=== PATIENT | female | born 1985 | race African-American/Black ===

== ENCOUNTER 2021-05-24 12:37 | Emergency (ER) | payer OTHER ==
[~2021-05-24] VITALS: Ht 175.3 cm; Wt 86.2 kg
[2021-05-24 12:43] VITALS: BP 140/91
--- NOTE | 2021-05-24 12:51 | NUR ---
PT AMBULATED TO BED 9
--- NOTE | 2021-05-24 13:01 | NUR ---
36Y FEMALE BIB SELF FROM HOME DUE TO VAGINAL BLEEDING X1 MONTH. PER PATIENT SHE IS CURRENTLY SATURAING ABOUT 3 PADS A DAY AND IS PASSING CLOTS. PT STATED BLEEDING IS HEAVY AND NON-STOP FOR THE PAST MONTH. PER PATIENT SHE LAST HAD UNPROCTECTED SEX X2 MONTHS AGO. PT DENIES ANY PAIN. PT CURRENTY A&OX4. PMH: ETOPIC 2008 NKA
--- NOTE | 2021-05-24 13:01 | NUR ---
DR. KENT BEDSIDE EVALUATING PT
--- NOTE | 2021-05-24 13:12 | NUR ---
BLOOD COLLECTED AND WALKED TO LAB
--- NOTE | 2021-05-24 13:12 | NUR ---
RECREATION WORKER AT PATIENT BEDSIDE
[2021-05-24 13:28] LABS: BASOPHILS % (AUTO) 0.8 % (0.0-2.0); EOSINOPHILS # (AUTO) 0.1 K/uL (0-0.4); EOSINOPHILS % (AUTO) 3.3 % (0.0-4.0); HEMATOCRIT 33.1 % (36-48); HEMOGLOBIN 11.3 g/dL (12.0-16.0); LYMPHOCYTES # (AUTO) 1.2 K/uL (2.5-16.5); LYMPHOCYTES % (AUTO) 30.1 % (20.5-51.1); MEAN CORPUSCULAR HEMOGLOBIN 30 pg (27-31); MEAN CORPUSCULAR HGB CONC 34 g/dL (33-37); MEAN CORPUSCULAR VOLUME 86.4 fL (80-94); MONOCYTES # (AUTO) 0.3 K/uL (0.8-1.0); MONOCYTES % (AUTO) 8.4 % (1.7-9.3); NEUTROPHILS # (AUTO) 2.3 K/uL (1.8-7.7); NEUTROPHILS % (AUTO) 57.4 % (42.2-75.2); PLATELET COUNT (AUTO) 272 K/uL (140-450); RED BLOOD CELL COUNT(AUTO) 3.83 MIL/uL (4.20-5.40); RED CELL DISTRIBUTION WIDTH 14.5 % (11.6-13.7); WHITE BLOOD COUNT (AUTO) 4.1 K/uL (4.8-10.8)
--- NOTE | 2021-05-24 15:07 | NUR ---
DR. RILEY BEDSIDE SPEAKING WITH PATIENT
[2021-05-24 15:20] VITALS: BP 154/103
--- NOTE | 2021-05-24 15:22 | NUR ---
Patient discharged with v/s stable. Written and verbal after care instructions given threatened miscarriage and explained. Patient verbalized understanding. Ambulatory with steady gait. All questions addressed prior to discharge. Advised to follow up with PMD.
--- NOTE | 2021-05-24 16:02 | NUR ---
Chart checked and completed. The patient's care was reviewed and supervised by Bernarda Dixon, RN, RN.
== END 2021-05-24 15:20 | disposition home or self-care (01) ==
LOC: MED 12:37
DX: O20.0 Threatened abortion (principal); O34.11 Maternal care for benign tumor of corpus uteri, first trimester; O34.81 Maternal care for other abnormalities of pelvic organs, first trimester; N83.201 Unspecified ovarian cyst, right side; Z3A.01 Less than 8 weeks gestation of pregnancy
CPT/HCPCS: 36415; 76817; 81002; 81025; 84702; 85025; 86900; 86901; 99284; Q0092

== ENCOUNTER 2021-10-26 12:54 | Emergency (ER) | payer MEDICAID, OTHER ==
[~2021-10-26] VITALS: Ht 175.3 cm; Wt 90.7 kg
[2021-10-26 13:02] VITALS: BP 156/97
--- NOTE | 2021-10-26 13:30 | NUR ---
36/F C/O COUGH, CONGESTION AND SORE THROAT SINCE YESTERDAY, DENIES RECENT SICK CONTACTS, DENIES TAKING MEDS FOR SYMPTOMS.
[2021-10-26] MEDS ORDERED: BENZ-300 PO (14:36)
[2021-10-26] MEDS ORDERED: PROM118S5 PO (14:36)
[2021-10-26] MEDS ORDERED: ONDA-188 PO (14:36)
[2021-10-26] MEDS ORDERED: IBUP-2213 PO (14:37)
--- NOTE | 2021-10-26 14:40 | NUR ---
CHRIS SWAB COLLECTED AND WALKED TO LAB
[2021-10-26 14:45] VITALS: BP 156/97
--- NOTE | 2021-10-26 14:45 | NUR ---
Patient discharged with v/s stable. Written and verbal after care instructions ABOUT VIRAL ILLNESS given and explained. Patient alert, oriented and verbalized understanding of instructions. Ambulatory with steady gait. All questions addressed prior to discharge. ID band removed. Patient advised to follow up with PMD. Rx of CEPACOL LOZENGE, IBUPROFEN, ZOFRAN AND PROMETHAZINE SYRUP given. Patient educated on indication of medication including possible reaction and side effects. Opportunity to ask questions provided and answered.
== END 2021-10-26 14:45 | disposition home or self-care (01) ==
LOC: MED 12:54
DX: B34.9 Viral infection, unspecified (principal); Z20.822 Contact with and (suspected) exposure to COVID-19; R03.0 Elevated blood-pressure reading, without diagnosis of hypertension; Z79.899 Other long term (current) drug therapy
CPT/HCPCS: 99283